=== PATIENT | female | born 1995 | race African-American/Black ===

== ENCOUNTER 2017-06-02 21:06 | Emergency (ER) | payer OTHER ==
[~2017-06-02] VITALS: Ht 172.7 cm; Wt 54.4 kg
[2017-06-02 21:10] VITALS: BP 147/89
== END 2017-06-02 21:22 | disposition left against medical advice (07) ==
LOC: ER 21:06
DX: Z53.21 Procedure and treatment not carried out due to patient leaving prior to being seen by health care provider (principal)